=== PATIENT | female | born 1970 | race African-American/Black ===

== ENCOUNTER 2016-05-06 12:29 | Emergency (ER) | payer MEDICAID, OTHER ==
[~2016-05-06] VITALS: Ht 162.6 cm; Wt 90.7 kg
[~2016-05-06 12:29] MED LIST: ALBUTEROL; BENADRYL25 MG ORAL; DUONEB 0.5-3(2.53 ML; FISH OIL CAP1000 MG ORAL; FREESTYLE LITE1 EACH; GABAPENTIN100 MG ORAL; GLIPIZIDE5 MG ORAL; GLUCOPHAGE500 MG ORAL; HUMALOG100 UNIT/3; HYDROXYZINE HCL50 M1; LANTUS SOL100 UNIT/1; LANTUS SOL100 UNIT/1 SUBQ; LOVENOX10 M4 SUBQ; METHADONE HCL5 MG PO; NOVOLOG100 UNIT/3 SUBQ; ONDANSETRON HCL4 M1 ORAL; OXYCODONE HCL5 M2 ORAL; PAROXETINE HCL20 MG; PROTONIX40 MG ORAL; QUETIAPINE FUM200 MG ORAL; SINGULAIR10 MG ORAL
--- NOTE | 2016-05-06 13:07 | Emergency Room Report ---
History of Present Illness General Chief Complaint: Abdominal Pain Source: Patient Present Illness HPI Patient states that previously she has been told her pancreas is not work Off-and-on she does get pain in the left upper quadrant Now presents with ongoing discomfort in the epigastric and left upper quadrant area Mild nausea denies any vomiting Denies any fevers or chills as any chest pain or shortness of breath patient reports She was told this at another hospital Patient has had inpatient workup at this facility as well Denies any change in position or feeding Allergies: Coded Allergies: ACETAMINOPHEN (Verified Allergy, Intermediate, 01/01/14) ASPIRIN (Verified Allergy, Intermediate, 01/01/14) LATEX (Verified Allergy, Intermediate, 01/01/14) LEVOFLOXACIN (Verified Allergy, Intermediate, 01/01/14) NSAIDS (NON-STEROIDAL ANTI-INFLAMMA (Unverified Allergy, Intermediate, ) HYDROMORPHONE (Unverified Allergy, Unknown, 05/20/15) IBUPROFEN (Unverified Allergy, Unknown, 05/20/15) PENICILLINS (Unverified Adverse Reaction, Intermediate, 01/01/14) Uncoded Allergies: ACETAMINOPHEN (Allergy, Unknown, 05/20/15) Patient History Past Medical History: see triage record Pertinent Family History: none Now: No Reviewed Nursing Documentation: PMH: Agreed, PSxH: Agreed Nursing Documentation-PMH Past Medical History: No History, Except For Hx Hypertension: Yes Hx COPD: Yes Hx Diabetes: Yes Hx Cancer: No Review of Systems All Other Systems: negative except mentioned in HPI Physical Exam Vital Signs Date Time Temp Pulse Resp B/P Pulse Ox O2 Delivery O2 Flow Rate FiO2 05/06/16 12:52 98.2 84 18 132/85 100 Room Air Sp02 EP Interpretation: reviewed, normal General Appearance: well appearing, no apparent distress Head: normocephalic, atraumatic Eyes: bilateral eye EOMI, bilateral eye PERRL ENT: hearing grossly normal, normal pharynx, TMs + canals normal, uvula midline Neck: full range of motion, supple, no meningismus, no bony tend Respiratory: lungs clear, normal breath sounds, no rhonchi, no respiratory distress, no retraction, no accessory muscle use Cardiovascular #1: normal peripheral pulses, regular rate, rhythm, no edema, no gallop, no JVD, no murmur Gastrointestinal: normal bowel sounds, non tender, soft, no mass, no organomegaly, non-distended, no guarding, no hernia, no pulsatile mass, no rebound Genitourinary: no CVA tenderness Musculoskeletal: normal inspection Neurologic: oriented x3, responsive, assistant professor of communication III-XII nml as tested, motor strength/ tone normal, sensory intact Psychiatric: mood/affect normal Skin: normal color, no rash, warm/dry, palpation normal Lymphatic: normal inspection, no adenopathy Medical Decision Making Diagnostic Impression: Primary Impression: Abdominal pain ER Course With the history exam and presentation, multiple differentials considered, including but not limited to appendicitis, gastritis, cholecystitis, diverticulitis Patient had baseline blood work initiated Lipase is very minimally elevated Other blood work or otherwise at baseline levels patient resting comfortably Does not appear to be in any acute distress Repeat abdominal exam is also soft Patient feels that there is something else going on with her discomfort At this time however patient is stable for close outpatient followup Labs Test 05/06/16 13:20 White Blood Count 9.3 K/UL (4.8-10.8) Red Blood Count 5.99 M/UL (4.20-5.40) Hemoglobin 17.1 G/DL (12.0-16.0) Hematocrit 52.3 % (37.0-47.0) Mean Corpuscular Volume 87 FL (80-99) Mean Corpuscular Hemoglobin 28.6 PG (27.0-31.0) Mean Corpuscular Hemoglobin Concent 32.7 G/DL (32.0-36.0) Red Cell Distribution Width 11.9 % (11.6-14.8) Platelet Count 303 K/UL (150-450) Mean Platelet Volume 7.3 FL (6.5-10.1) Neutrophils (%) (Auto) 46.2 % (45.0-75.0) Lymphocytes (%) (Auto) 45.1 % (20.0-45.0) Monocytes (%) (Auto) 4.1 % (1.0-10.0) Eosinophils (%) (Auto) 3.3 % (0.0-3.0) Basophils (%) (Auto) 1.4 % (0.0-2.0) Sodium Level 136 mEQ/L (135-145) Potassium Level 4.5 mEQ/L (3.4-4.9) Chloride Level 95 mEQ/L (98-107) Carbon Dioxide Level 26 mEQ/L (20-30) Anion Gap 15 (5-15) Blood Urea Nitrogen 16 mg/dL (7-23) Creatinine 0.8 mg/dL (0.5-0.9) Estimat Glomerular Filtration Rate > 60 mL/min (>60) Glucose Level 389 mg/dL (74-106) Calcium Level 9.8 mg/dL (8.6-10.2) Lipase 71 U/L (< 60) Last Vital Signs Date Time Temp Pulse Resp B/P Pulse Ox O2 Delivery O2 Flow Rate FiO2 05/06/16 12:52 98.2 84 18 132/85 100 Room Air Status: improved Disposition: HOME, SELF-CARE Condition: Stable Scripts Ondansetron Odt* (ZOFRAN ODT*) 4 Mg Tab.rapdis 4 MG ORAL Q6H Y for Nausea & Vomiting, #15 TAB 0 Refills Prov: SELAM GRANADOS D.O. 05/06/16 Famotidine (PEPCID) 40 Mg Tablet 40 MG PO DAILY, #14 TAB 0 Refills Prov: SELAM GRANADOS D.O. 05/06/16 Additional Instructions: Patient is provided with the discharge instructions notified to follow up with primary doctor in the next 2-3 days otherwise return to the er with any worsening symptoms. Please note that this report is being documented using [employer] technology. This can lead to erroneous entry secondary to incorrect interpretation by the dictating instrument. SELAM GRANADOS D.O. May 06, 2016 13:07
[2016-05-06 13:22] VITALS: BP 132/85
[2016-05-06 13:47] LABS: BASOPHILS % (AUTO) 1.4 % (0.0-2.0); EOSINOPHILS % (AUTO) 3.3 % (0.0-3.0); LYMPHOCYTES % (AUTO) 45.1 % (20.0-45.0); MEAN CORPUSCULAR HEMOGLOBIN 28.6 PG (27.0-31.0); MEAN CORPUSCULAR HGB CONC 32.7 G/DL (32.0-36.0); MEAN CORPUSCULAR VOLUME 87 FL (80-99); MEAN PLATELET VOLUME 7.3 FL (6.5-10.1); MONOCYTES % (AUTO) 4.1 % (1.0-10.0); NEUTROPHILS % (AUTO) 46.2 % (45.0-75.0); PLATELET COUNT 303 K/UL (150-450); RED BLOOD COUNT 5.99 M/UL (4.20-5.40); RED CELL DISTRIBUTION WIDTH 11.9 % (11.6-14.8); WHITE BLOOD COUNT 9.3 K/UL (4.8-10.8)
[2016-05-06 13:58] LABS: ANION GAP 15 (5-15); CALCIUM 9.8 mg/dL (8.6-10.2); CARBON DIOXIDE 26 mEQ/L (20-30); CHLORIDE 95 mEQ/L (98-107); CREATININE 0.8 mg/dL (0.5-0.9); GLOMERULAR FILTRATION RATE > 60 mL/min (>60); HEMOLYSIS 26; LIPASE 71 U/L (< 60); POTASSIUM 4.5 mEQ/L (3.4-4.9); SODIUM 136 mEQ/L (135-145)
[2016-05-06] MEDS ORDERED: PEPCID40 MG PO (14:11)
[2016-05-06] MEDS ORDERED: ZOFRAN ODT4 MG ORAL (14:11)
[2016-05-06] MEDS ORDERED: Dicyclomine HCl 10mg/5ml oral soln ORAL ONE (14:15)
[2016-05-06] MEDS ORDERED: Mylanta II UD 30ml ORAL ONE (14:15)
[2016-05-06] MEDS ORDERED: Lidocaine 2% Visc 15ml soln ORAL ONE (14:15)
[2016-05-06 14:22] VITALS: BP 132/85
== END 2016-05-06 14:22 | disposition home or self-care (01) ==
LOC: EMR 14:21
DX: R10.9 Unspecified abdominal pain (principal); E11.9 Type 2 diabetes mellitus without complications; I10 Essential (primary) hypertension; J44.9 Chronic obstructive pulmonary disease, unspecified; Z88.6 Allergy status to analgesic agent; Z88.0 Allergy status to penicillin; Z88.1 Allergy status to other antibiotic agents; Z91.040 Latex allergy status
CPT/HCPCS: 36415; 80048; 83690; 85025; 99282

== ENCOUNTER 2018-02-19 16:01 | Emergency (ER) | payer MEDICAID, OTHER ==
[~2018-02-19] VITALS: Ht 165.1 cm; Wt 86.2 kg
[~2018-02-19 16:01] MED LIST changes: +PEPCID40 MG PO; +ZOFRAN ODT4 MG ORAL
[2018-02-19 16:05] VITALS: BP 133/85
[2018-02-19] MEDS ORDERED: UNOBMED (16:10)
[2018-02-19] MEDS ORDERED: Insulin Human Regular 100units/ml 3ml SUBQ ONE (16:30)
[2018-02-19] MEDS ORDERED: Insulin Human Regular 100units/ml 3ml IV ONE (18:00)
--- NOTE | 2018-02-19 18:05 | Emergency Room Report ---
History of Present Illness General Chief Complaint: Abdominal Pain Source: Patient Present Illness HPI Patient presents with abdominal pain Reports that she had reports of high glucose and the last 2 checks the past 2 mornings Patient reports that she is very brittle with her diabetes has had multiple hospitalizations Denies any chest pain she had some increased nausea denies any diarrhea denies any fevers or chills As her glucose was reading high again today she presents to the ER Patient reports that she has had multiple PICC lines And hospitalizations for similar problems Also pancreatic problems and flareups Allergies: Coded Allergies: ACETAMINOPHEN (Verified Allergy, Intermediate, 01/01/14) ASPIRIN (Verified Allergy, Intermediate, 01/01/14) LATEX (Verified Allergy, Intermediate, 01/01/14) LEVOFLOXACIN (Verified Allergy, Intermediate, 01/01/14) NSAIDS (NON-STEROIDAL ANTI-INFLAMMA (Unverified Allergy, Intermediate, ) HYDROMORPHONE (Unverified Allergy, Unknown, 05/20/15) IBUPROFEN (Unverified Allergy, Unknown, 05/20/15) PENICILLINS (Unverified Adverse Reaction, Intermediate, 01/01/14) Uncoded Allergies: ACETAMINOPHEN (Allergy, Unknown, 05/20/15) Patient History Past Medical History: see triage record Pertinent Family History: none Reviewed Nursing Documentation: PMH: Agreed; PSxH: Agreed Nursing Documentation-PMH Past Medical History: No History, Except For Hx Hypertension: Yes Hx COPD: Yes Hx Diabetes: Yes Hx Cancer: No Review of Systems All Other Systems: negative except mentioned in HPI Physical Exam Vital Signs Date Time Temp Pulse Resp B/P (MAP) Pulse Ox O2 Delivery O2 Flow Rate FiO2 02/19/18 16:04 97.7 93 17 146/101 97 Room Air Sp02 EP Interpretation: reviewed, normal General Appearance: well appearing, no apparent distress Head: normocephalic, atraumatic Eyes: bilateral eye PERRL, bilateral eye EOMI ENT: hearing grossly normal, normal pharynx, TMs + canals normal, uvula midline Neck: full range of motion, supple, no meningismus, no bony tend Respiratory: lungs clear, normal breath sounds, no rhonchi, no respiratory distress, no retraction, no accessory muscle use Cardiovascular #1: normal peripheral pulses, regular rate, rhythm, no edema, no gallop, no JVD, no murmur Gastrointestinal: normal bowel sounds, non tender, soft, no mass, no organomegaly, non-distended, no guarding, no hernia, no pulsatile mass, no rebound Genitourinary: no CVA tenderness Musculoskeletal: normal inspection Neurologic: oriented x3, responsive, program manufacturing leader III-XII nml as tested, motor strength/ tone normal, sensory intact Psychiatric: mood/affect normal Skin: normal color, no rash, warm/dry, palpation normal Lymphatic: normal inspection, no adenopathy Procedures Central Line Central Line : Consent: Emergent Central Line Lumen: triple Maximal Sterile Barrier Tech: yes cap, yes mask, yes sterile gown, yes sterile gloves, yes large sterile sheet, yes hand hygiene, yes chlorhexidine prep Central Line Postion: femoral (R) Anesthesia: Lidocaine Complications: none Central Line Post Position: sutured Attempts: One Patient Tolerated: Well Complications: None Medical Decision Making Diagnostic Impression: Primary Impression: Abdominal pain Additional Impressions: Hyperglycemia Gastroparesis ER Course Multiple differentials considered Patient's Accu-Chek here is elevated Initial subcutaneous insulin has not been able to decrease the glucose appropriately multiple attempts of IV establishment has not been successful therefore the patient has central line placement IV hydration is initiated insulin IV Patient's glucose level is elevated however does not show obvious signs of DKA Patient is provided with further hydration Given the decreased oral intake abdominal discomfort Dehydration She is requested for further inpatient care Labs Test 02/19/18 18:00 White Blood Count 7.7 K/UL (4.8-10.8) Red Blood Count 5.15 M/UL (4.20-5.40) Hemoglobin 14.3 G/DL (12.0-16.0) Hematocrit 44.1 % (37.0-47.0) Mean Corpuscular Volume 86 FL (80-99) Mean Corpuscular Hemoglobin 27.8 PG (27.0-31.0) Mean Corpuscular Hemoglobin Concent 32.4 G/DL (32.0-36.0) Red Cell Distribution Width 13.7 % (11.6-14.8) Platelet Count 50 K/UL (150-450) Mean Platelet Volume 6.6 FL (6.5-10.1) Neutrophils (%) (Auto) % (45.0-75.0) Lymphocytes (%) (Auto) % (20.0-45.0) Monocytes (%) (Auto) % (1.0-10.0) Eosinophils (%) (Auto) % (0.0-3.0) Basophils (%) (Auto) % (0.0-2.0) Urine Color Pale yellow Urine Appearance Clear Urine pH 7 (4.5-8.0) Urine Specific [place] 1.005 (1.005-1.035) Urine Protein Negative (NEGATIVE) Urine Glucose (UA) 4+ (NEGATIVE) Urine Ketones Negative (NEGATIVE) Urine Blood Negative (NEGATIVE) Urine Nitrite Negative (NEGATIVE) Urine Bilirubin Negative (NEGATIVE) Urine Urobilinogen Normal MG/DL (0.0-1.0) Urine Leukocyte Esterase 1+ (NEGATIVE) Urine HCG, Qualitative Negative (NEGATIVE) Sodium Level 134 MMOL/L (136-145) Potassium Level 4.5 MMOL/L (3.5-5.1) Chloride Level 99 MMOL/L (98-107) Carbon Dioxide Level 27 MMOL/L (21-32) Anion Gap 8 mmol/L (5-15) Blood Urea Nitrogen 13 mg/dL (7-18) Creatinine 0.9 MG/DL (0.55-1.30) Estimat Glomerular Filtration Rate > 60 mL/min (>60) Glucose Level 533 MG/DL (74-106) Calcium Level 10.0 MG/DL (8.5-10.1) Total Bilirubin 0.5 MG/DL (0.2-1.0) Aspartate Amino Transf (AST/SGOT) 37 U/L (15-37) Alanine Aminotransferase (ALT/SGPT) 72 U/L (12-78) Alkaline Phosphatase 177 U/L (46-116) Total Protein 6.6 G/DL (6.4-8.2) Albumin 3.2 G/DL (3.4-5.0) Globulin 3.4 g/dL Albumin/Globulin Ratio 0.9 (1.0-2.7) Lipase 172 U/L (73-393) Last Vital Signs Date Time Temp Pulse Resp B/P (MAP) Pulse Ox O2 Delivery O2 Flow Rate FiO2 02/19/18 16:18 93 17 Room Air 02/19/18 16:05 97.7 133/85 97 Status: improved Disposition: XFER SHT-TRM HOSP Condition: Serious Referrals: [facility],REFERRING (PCP) Louisa Mckeon DO Feb 19, 2018 18:05
[2018-02-19 18:10] LABS: HEMATOCRIT 44.1 % (37.0-47.0); HEMOGLOBIN 14.3 G/DL (12.0-16.0); MEAN CORPUSCULAR VOLUME 86 FL (80-99); PLATELET COUNT 50 K/UL (150-450); RED BLOOD COUNT 5.15 M/UL (4.20-5.40); RED CELL DISTRIBUTION WIDTH 13.7 % (11.6-14.8); WHITE BLOOD COUNT 7.7 K/UL (4.8-10.8)
[2018-02-19 18:11] LABS: APPEARANCE,URINE CLEAR; BILIRUBIN, URINE NEGATIVE (NEGATIVE); COLOR,URINE PALE YELLOW; GLUCOSE, URINE (UA) 4+ (NEGATIVE); KETONES,URINE NEGATIVE (NEGATIVE); LEUKOCYTE ESTERASE ,URINE 1+ (NEGATIVE); NITRITE,URINE NEGATIVE (NEGATIVE); PH,URINE 7 (4.5-8.0); PROTEIN,URINE NEGATIVE (NEGATIVE); UROBILINOGEN,URINE NORMAL MG/DL (0.0-1.0)
[2018-02-19] MEDS ORDERED: Morphine Sulfate 4mg/ml Inj (IV/IM USE ONLY) IVP ONE (18:15)
[2018-02-19 18:25] LABS: ALANINE AMINOTRANSFERASE 72 U/L (12-78); ALBUMIN 3.2 G/DL (3.4-5.0); ALBUMIN/GLOBULIN RATIO 0.9 (1.0-2.7); ALKALINE PHOSPHATASE 177 U/L (46-116); ANION GAP 8 mmol/L (5-15); ASPARTATE AMINO TRANSFERASE 37 U/L (15-37); BILIRUBIN,TOTAL 0.5 MG/DL (0.2-1.0); BLOOD UREA NITROGEN 13 mg/dL (7-18); CARBON DIOXIDE 27 MMOL/L (21-32); CHLORIDE 99 MMOL/L (98-107); CREATININE 0.9 MG/DL (0.55-1.30); POTASSIUM 4.5 MMOL/L (3.5-5.1); SODIUM 134 MMOL/L (136-145)
[2018-02-19 18:30] VITALS: BP 125/77
[2018-02-19] MEDS ORDERED: DiphenhydrAMINE 50mg/ml Inj IVP ONE (18:45)
[2018-02-19 20:00] VITALS: BP 121/68
[2018-02-19] MEDS ORDERED: Norco 5mg/325mg tab ORAL ONE (20:30)
[2018-02-19 22:00] VITALS: BP 119/72
[2018-02-19 22:38] VITALS: BP 119/72
== END 2018-02-19 22:35 | disposition short-term general hospital (02) ==
LOC: EMR 16:45 → EDBEDREQ 18:22 → EMR 22:35
DX: R10.9 Unspecified abdominal pain (principal); E11.65 Type 2 diabetes mellitus with hyperglycemia; K31.84 Gastroparesis; I10 Essential (primary) hypertension; J44.9 Chronic obstructive pulmonary disease, unspecified; Z88.6 Allergy status to analgesic agent; Z88.0 Allergy status to penicillin; Z91.040 Latex allergy status
CPT/HCPCS: 36415; 36556; 80053; 80307; 81003; 81025; 83690; 85007; 85025; 96361; 96372; 96374; 96375; 96376; 99285; J1200; J1815; J2270; J2405; S0028; Z7502